=== PATIENT | male | born 1990 | race Caucasian/White ===

== ENCOUNTER 2023-09-27 02:45 | Emergency (ER) | payer OTHER ==
[~2023-09-27] VITALS: Ht 185.4 cm; Wt 79.5 kg
[2023-09-27 02:50] VITALS: TEMP 98.4
[2023-09-27] MEDS ORDERED: morphine 4 MG/ML inj SYRINge IV ONE (03:50)
[2023-09-27] MEDS ORDERED: metoclopramide 5 mg/ml inj IV ONE (03:50)
[2023-09-27] MEDS ORDERED: normal saline 1000ML IV soln IVB ONE (03:50)
[2023-09-27] MEDS ORDERED: POVIDONE IODINE TP ONE (03:55)
[2023-09-27] MEDS ORDERED: povidone-iodine 10% ointment 1 APPLIC APPLIC TP ONE (04:00)
[2023-09-27] MEDS ORDERED: iohexol 300mg/ml 100ml inj. ONE (04:02)
--- NOTE | 2023-09-27 06:23 | NUR ---
assumed care of patient. Pt sitting up alert/awake in bed. Officer at bedside.
[2023-09-27 07:13] VITALS: BP 114/76; PULSE 81; RESP 18; O2SAT 100
== END 2023-09-27 07:14 | disposition home or self-care (01) ==
LOC: ER 02:47 → EEVIPCON 02:47 → ER 07:14
DX: R07.81 Pleurodynia (principal); M25.512 Pain in left shoulder; R51.9 Headache, unspecified; M25.562 Pain in left knee; W19.XXXA Unspecified fall, initial encounter; Y93.89 Activity, other specified; Y92.89 Other specified places as the place of occurrence of the external cause; Y99.8 Other external cause status
CPT/HCPCS: 70450; 70486; 71260; 72125; 73110; 74177; 96361; 96374; 96375; 99285; J2270; J2765; J3490; J7030; Q9967